=== PATIENT | male | born 1960 | race African-American/Black ===

== ENCOUNTER 2016-10-03 08:05 | Emergency (ER) ==
[2016-10-03 09:11] VITALS: BP 156/096
== END 2016-10-03 08:10 | disposition left against medical advice (07) ==
LOC: P.ED 08:05
DX: I10 Essential (primary) hypertension (principal)

== ENCOUNTER 2016-10-03 15:59 | Emergency (ER) ==
[2016-10-03 16:15] VITALS: BP 137/83
--- NOTE | 2016-10-03 17:22 | PROVIDER DOCUMENTATION ---
HPI-General Adult <Jason Poe - Last Filed: 10/03/16 17:22> - History of Present Illness -Gen Adult Nature of Presenting Problems: pt is a seizure patient and had a seizure at work with an elevated BP. he is fine now and requires a return to work permit. his BP is fine now <Jeb Valentin - Last Filed: 10/03/16 17:32> - General Chief Complaint: Return/Recheck Stated Complaint: B/P PROBLEMS Time Seen by Provider: 10/03/16 17:15 Allergies/Adverse Reactions: Patient Allergies Allergy/AdvReac Type Severity Reaction Status Date / Time No Known Allergies Allergy Unverified 10/03/16 09:11 Home Medications: Home Medication List Medication Instructions Recorded Confirmed Last Taken Type Amlodipine Besylate [Norvasc] 2.5 mg PO DAILY 12/02/14 07/12/16 08/01/15 History Oxcarbazepine [Trileptal] 300 mg PO DAILY 12/02/14 07/12/16 08/01/15 History Amoxicillin/Potassium Clav 1 each PO Q12HR #20 tab.er.12h 08/04/15 07/12/16 Unknown Rx [Augmentin Xr 1,000-62.5 Tab] Divalproex [Depakote] 500 mg PO BID #60 tablet 08/04/15 07/12/16 Unknown Rx Oxcarbazepine [Trileptal] 600 mg PO BID #60 tablet 12/09/15 07/12/16 Unknown Rx Review of Systems - Adult - REVIEW OF SYSTEMS - ADULT Constitutional: denies: chills, fever, night sweats Eyes: denies: discharge, blurred vision, double vision Ears, Nose, Mouth & Throat: denies: ear pain, mouth/dental pain, throat swelling Cardiovascular: denies: chest pain, irregular heart rate, palpitations, syncope Respiratory: denies: cough, shortness of breath, wheezing Gastrointestinal: denies: abdominal pain, diarrhea, nausea, vomiting Genitourinary: denies: dysuria, flank pain, hematuria Musculoskeletal: denies: back pain, joint swelling, neck pain Integumentary: denies: hives, itching, rash Neurological: reports: seizure (HX). denies: headache/migraines, tremors Psychiatric: denies: anxiety, emotional problems, suicidal thoughts All Other Systems: Reviewed and Negative <Aydin Poeathan - Last Filed: 10/03/16 17:22> - REVIEW OF SYSTEMS - ADULT Constitutional: denies: chills, fever <Jeb Valentin - Last Filed: 10/03/16 17:32> Past History - Adult - PAST MEDICAL HISTORY-ADULT Review of Records: reports: Old Records Reviewed, Nursing Assessment Review, Medications Reviewed Major Childhood Illnesses: reports: denies history Cardiovascular: reports: HTN Neurological: reports: CVA, Seizures/Epilepsy - PRIOR SURGERIES/PROCEDURES Surgical/Procedure History: reports: tonsillectomy - PRIOR HOSPITALIZATIONS Prior Hospitalizations: reports: none - IMMUNIZATION STATUS Childhood Immunizations: See Nurse Assessment Flu Vaccine: See Nurse Assessment - FAMILY HISTORY Family History: reviewed, not pertinent - SOCIAL HISTORY Smoking: greater than 1 pack/day Provider spent 3-5 mins advising pt. on dangers of tobacco.: Discussed manners to quit use, and f/u contacts for add'l counseling. Substance Use: none/never Alcohol Use Frequency: occasionally Number of drinks per typical drinking period:: 2 drinks Living Situation: family <Jason Poe - Last Filed: 10/03/16 17:22> - PAST MEDICAL HISTORY-ADULT Major Childhood Illnesses: reports: denies history Cardiovascular: reports: HTN Respiratory: reports: denies history Gastrointestinal: reports: denies history Genitourinary: reports: denies history Musculoskeletal: reports: denies history Neurological: reports: Seizures/Epilepsy Psychiatric: reports: denies history Endocrine/Immune: reports: denies history - PRIOR SURGERIES/PROCEDURES Surgical/Procedure History: reports: none, tonsillectomy - PRIOR HOSPITALIZATIONS Prior Hospitalizations: reports: none, for similar symptoms - IMMUNIZATION STATUS Childhood Immunizations: UTD, NUTD, See Nurse Assessment Flu Vaccine: See Nurse Assessment - FAMILY HISTORY Family History: reviewed, not pertinent <Jeb Valentin - Last Filed: 10/03/16 17:32> Physical Exam-General - PHYSICAL EXAM-ADULT Initial Vital Signs Reviewed: Yes - CONSTITUTIONAL General Appearance: appears well, alert, no apparent distress - EYES Eyes: PERRL/EOMI, pink conjunctivae, fundi clear, no AV nicking - HEAD, EARS, NOSE, MOUTH & THROAT HENMT: normocephalic/atraumatic, moist mucous membranes, normal ENT inspection, TMs normal, pharynx normal - NECK Neck: non-tender, full range of motion, supple - RESPIRATORY Respiratory: chest non-tender, lungs clear, normal breath sounds, no pleuratic chest pain, no respiratory distress, no accessory muscle use - CARDIOVASCULAR Cardiovascular: normal peripheral pulses, regular rate, rhythm, no edema, no gallop, no JVD, no murmur, JVD - GASTROINTESTINAL (ABDOMEN) Abdominal Exam: normal bowel sounds, non tender, soft, no organomegaly, no pulsatile mass - MUSCULOSKELETAL Back Exam: normal inspection, no CVA tenderness, no vertebral tenderness Extremity: normal range of motion, non-tender, normal gait, normal inspection, no pedal edema, no calf tenderness, normal capillary refill, pelvis stable - SKIN Integumentary: normal color, normal turgor, warm/dry - PSYCHIATRIC Psych/Mental Status: normal mood/affect, normal thought content, normal thought process, oriented x 3 <Jason Poe - Last Filed: 10/03/16 17:22> Departure <Jason Poe - Last Filed: 10/03/16 17:22> - Departure Time of Disposition Order: 17:31 Certified Medical Emergency: Urgent <Jeb Valentin - Last Filed: 10/03/16 17:32> - Departure DIAGNOSIS: Seizure disorder Hypertension Qualifiers: Hypertension type: essential hypertension Qualified Code(s): I10 - Essential ( primary) hypertension Disposition: HOME 01 Condition: Stable Additional Instructions: ok to return to work ED Follow Up Instructions: You have been treated by a care provider in the Emergency Department. These instructions are being provided to you so you can have an understanding of how to care for yourself upon discharge. Upon discharge from the Emergency Department, you are responsible for making arrangements for follow-up care by a physician of your choice. Take all prescribed medications as directed. Return to the Emergency Department immediately for any new or worsening symptoms. You may call the Physician Referral phone number at [phone] to obtain a list of Physicians who are taking new patients. Physician Attestation
== END 2016-10-03 17:59 | disposition home or self-care (01) ==
LOC: P.ED 15:59
DX: G40.909 Epilepsy, unspecified, not intractable, without status epilepticus (principal); I10 Essential (primary) hypertension; Z86.73 Personal history of transient ischemic attack (TIA), and cerebral infarction without residual deficits; F17.210 Nicotine dependence, cigarettes, uncomplicated; Z71.6 Tobacco abuse counseling; Z79.899 Other long term (current) drug therapy
CPT/HCPCS: 99282